=== PATIENT | female | born 1950 | race Caucasian/White ===

== ENCOUNTER 2016-10-07 08:36 | Inpatient (IN) | payer MEDICARE ==
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
[2016-10-07] MEDS ORDERED: GABAPENTIN 600 MG TABLET PO ONE (10:30)
[2016-10-07] MEDS ORDERED: FAMOTIDINE 20 MG TABLET PO ONE (10:30)
[2016-10-07] MEDS ORDERED: CLONIDINE HCL 0.1 MG/24 HR (7 DAY PATCH) TD SCH (10:30)
[2016-10-07] MEDS ORDERED: ONDANSETRON 4 MG/2ML 2 ML VIAL IV ONE (10:30)
[2016-10-07] MEDS ORDERED: OXYCODONE HCL 10 MG TAB.SR PO ONE ×2 (10:30→11:40)
[2016-10-07] MEDS ORDERED: CEFAZOLIN SODIUM 2 GRAM PREMIX 100 ML IV PRN (10:30)
[2016-10-07] MEDS ORDERED: BUPIVACAINE 0.25% (MDV) 20 ML in SODIUM CHLORIDE 0.9% FLUSH 20 ML IF PRN (10:30)
[2016-10-07] MEDS ORDERED: POLYMYXIN B SULFATE 500,000 UNITS, BACITRACIN 25,000 UNITS in SODIUM CHLORIDE 3 L IRRIG... IR PRN (10:30)
[2016-10-07] MEDS ORDERED: TRANEXAMIC ACID 1,000 MG in SODIUM CHLORIDE 0.9% 100 ML IV PRN (10:30)
[2016-10-07] MEDS ORDERED: CELECOXIB 200 MG CAPSULE PO ONE (10:30)
[2016-10-07] MEDS ORDERED: TRAMADOL HCL 50 MG TABLET PO ONE (10:30)
[2016-10-07] MEDS ORDERED: BUPIVACAINE 0.25% (MDV) 24 ML, MORPHINE SULFATE 8 MG, EPINEPHRINE 0.3 MG in SODIUM CHLO... IF PRN (10:30)
[2016-10-07] MEDS ORDERED: CEFAZOLIN SODIUM 2 GRAM PREMIX 100 ML IV ONE (10:47)
[2016-10-07] MEDS ORDERED: IV START KIT ONE (10:47)
[2016-10-07] MEDS ORDERED: LACTATED RINGERS 1,000 ML ONE (10:47)
[2016-10-07] MEDS ORDERED: PROPOFOL 20 ML IV ONE ×4 (11:19→15:11)
[2016-10-07] MEDS ORDERED: LIDOCAINE 2% (PRES FREE) 5 ML VIAL ONE (11:19)
[2016-10-07] MEDS ORDERED: FENTANYL 100 MCG/2 ML VIAL ONE (11:20)
[2016-10-07] MEDS ORDERED: MIDAZOLAM HCL 5 MG/5 ML VIAL ONE (11:20)
[2016-10-07] MEDS ORDERED: TRAMADOL HCL 50 MG TABLET ONE (11:40)
[2016-10-07] MEDS ORDERED: CELECOXIB 200 MG CAPSULE ONE (11:41)
[2016-10-07] MEDS ORDERED: CLONIDINE HCL 0.1 MG/24 HR (7 DAY PATCH) TD ONE (11:41)
[2016-10-07] MEDS ORDERED: FAMOTIDINE 20 MG TABLET ONE (11:41)
[2016-10-07] MEDS ORDERED: ONDANSETRON 4 MG/2ML 2 ML VIAL ONE (11:41)
[2016-10-07] MEDS ORDERED: GABAPENTIN 600 MG TABLET ONE (11:41)
[2016-10-07] MEDS ORDERED: ROPIVACAINE 0.2% 20 ML VIAL ONE (11:44)
[2016-10-07] MEDS ORDERED: SPINAL PROCEDURAL TRAY 1 EACH ONE (11:44)
[2016-10-07] MEDS ORDERED: NERVE BLOCK PROCEDURAL TRAY 1 EACH ONE (11:44)
[2016-10-07] MEDS ORDERED: METHYLENE BLUE 1% 1ML VIAL ONE (13:16)
[2016-10-07] MEDS ORDERED: DEXAMETHASONE SOD PHOS 4 MG/1 ML VIAL ONE (13:54)
[2016-10-07] MEDS ORDERED: ON-Q PUMP/ROPIVACAINE 0.2% 450 ML ONE (14:09)
[2016-10-07] MEDS ORDERED: EPHEDRINE SULFATE UD SYR 25 MG 25 MG/5 ML SYRINGE IV ONE (14:31)
[2016-10-07] MEDS ORDERED: HYDROMORPHONE HCL 1 MG/ML SYRINGE IV PRN ×2 (14:47→17:04)
[2016-10-07] MEDS ORDERED: ATROPINE SULFATE 0.4 MG/1 ML VIAL IV PRN (14:47)
[2016-10-07] MEDS ORDERED: FENTANYL 100 MCG/2 ML VIAL IV PRN (14:47)
[2016-10-07] MEDS ORDERED: NALOXONE HCL 0.4 MG/ML VIAL IV PRN (14:47)
[2016-10-07] MEDS ORDERED: ONDANSETRON 4 MG/2ML 2 ML VIAL IV PRN ×2 (14:47→16:40)
[2016-10-07] MEDS ORDERED: PROMETHAZINE HCL 25 MG/ML VIAL IM PRN (14:47)
[2016-10-07] MEDS ORDERED: LACTATED RINGERS 1,000 ML IV SCH (15:00)
--- NOTE | 2016-10-07 15:54 | PCMBPN ---
Brief Post Op Note: Date of Procedure: 10/07/16 Preoperative Diagnosis: left knee DJD Postoperative Diagnosis: 1. [Same] Procedure: left TKA Surgeon: Avel Marinelli MD Assist: Fany (NEENA) Anesthesia: spinal/add block (Elian) Condition: stable to PAR Complications: none IV Fluids: 2000 mLs of LR Urine Output: 500 mLs Estimated Blood Loss: 200 mLs Tourniquet Time: ~45 Specimens: [N/A] Implants: Legion Drains: none
[2016-10-07] MEDS: ON-Q PUMP/ROPIVACAINE 0.2% 450 ML in PREMIX BAG 1 EACH NB PRN (16:00)
--- NOTE | 2016-10-07 16:24 | RAD ---
LEFT KNEE 2 VIEWS HISTORY: Status post total knee arthroplasty. Frontal and lateral radiographs of the left knee. COMPARISON: None. FINDINGS: POSTPROCEDURAL CHANGE: Status post left total knee arthroplasty. ALIGNMENT: Grossly anatomic. FRACTURE: None identified. ADDITIONAL POSTPROCEDURAL FINDINGS: Soft tissue gas and overlying brace. IMPRESSION: Grossly unremarkable immediate post arthroplasty appearance of the left knee.
[2016-10-07 16:36] VITALS: BMI 26.8
[2016-10-07] MEDS ORDERED: HYDROMORPHONE HCL 0.5 MG/0.5 ML SYRINGE IV PRN (16:40)
[2016-10-07] MEDS ORDERED: CALCIUM CARBONATE 500 MG TAB.CHEW PO PRN (16:40)
[2016-10-07] MEDS ORDERED: HYDROMORPHONE HCL 2 MG/ML SYRINGE IV PRN (17:05)
[2016-10-07] MEDS ORDERED: PUMP TUBING ONE (17:18)
[2016-10-07] MEDS: KETOROLAC TROMETHAMINE 30 MG/ML 1 ML VIAL IV PRN (17:47)
[2016-10-07] MEDS: D5 1/2NS with 20 mEq KCL 1,000 ML IV SCH (17:47)
[2016-10-07] MEDS: HYDROMORPHONE HCL 2 MG TABLET PO PRN ×2 (18:08→22:03)
--- NOTE | 2016-10-07 19:05 | CONS ---
CHRISTIAN HARDING [id number] HOSPITALIST CONSULT DATE OF ADMISSION: October 07, 2016 DATE OF CONSULTATION: October 07, 2016 REQUESTING PHYSICIAN: Avel Marinelli M.D. CHIEF COMPLAINT: Left total knee arthroplasty. HISTORY OF PRESENT ILLNESS: The patient is a 66-year-old female postoperative day zero status post left total knee arthroplasty. Reports feeling some pain in the left knee but otherwise not having any symptoms currently. Not short of breath, no nausea, no other complaints. We have been requested to assist with medical management. PAST MEDICAL: 1. Hypothyroidism. 2. Depression. 3. Dyslipidemia on fenofibrate and Lipitor. 4. Restless leg syndrome. 5. Remote history of transverse myelitis in 2009 which is almost completely resolved. 6. History of metatarsal stress fracture. 7. Remote history of ulcers. 8. She has a previous history of hypertension, diabetes, and reflux but these have all vastly improved since having gastric bypass. PAST SURGICAL HISTORY: Remarkable for: 1. Gastric bypass. 2. Knee arthroscopy. 3. She has had previous bicep tears bilaterally but these were not repaired. 4. Previous laser lithotripsy. 5. Bilateral foot surgeries. 6. Bilateral bunionectomies. 7. Previous Lasik and cataract replacement. 8. Bilateral carpal tunnel surgery. 9. Bilateral thumb joint fusions. 10. Bilateral breast reduction. 11. Hysteroscopy. 12. Dilation and curettage. 13. Cone biopsy. 14. Appendectomy. 15. Ovarian tube cyst removal. 16. Lump removed from under the right arm. ALLERGIES: LISTED : 1. HYDROCODONE. 2. OXYCODONE. 3. DARVOCET. 4. SENSITIVE TO TAPE. HOME MEDICATIONS: 1. Tylenol #3. She takes two or three a day on a bad day. 2. She takes atorvastatin 10 mg daily. 3. Bupropion SR 150 mg orally twice daily. 4. Calcium citrate with D. 5. Celebrex 200 mg daily. 6. Fenofibrate 54 mg daily. 7. Levothyroxine 125 mcg daily. 8. Lexapro 20 mg daily. 9. Loratadine 10 mg daily. 10. Omeprazole 20 mg orally twice daily. 11. Ropinirole 0.5 mg daily. 12. Sudafed phenylephrine 10 mg as needed. 13. B12 1000 mg weekly. 14. Vitamin D 1000 orally twice daily. 15. Zinc 50 mg daily. 16. Ambien 5 mg at bedtime. 17. Multivitamin. SOCIAL HISTORY: No smoking. Wine perhaps two times a month. She is a retired teacher, . She lives in her home alone. She has two cats. No kids. [employer]. Hobbies include quilting, socializing and volunteering. She also enjoys traveling very much. FAMILY HISTORY: Father at age 90 with myasthenia gravis. Mom at 77 of heart disease. REVIEW OF SYSTEMS: Eyes, ears, nose and throat have been okay. Breathing has been okay. Heart has been okay. No breasts complaints. No skin complaints except for a basal cell that was recently removed. No stomach complaints, no nausea, no vomiting. Reflux has been much better. No urinary complaints. Remote history of kidney stones but currently stable. No constipation, no diarrhea. No leg complaints currently other than the soreness postoperatively. Arms have been okay. No history of stroke or nervous system problems. Mood has been doing well. PHYSICAL EXAM: GENERAL: A very pleasant female in no distress. VITAL SIGNS: Temperature 98.0, pulse is 80, blood pressure 130/78, respirations 20, 98% saturation on 2 liters. HEAD: Head is normocephalic and atraumatic. EYES: Are unremarkable. EARS: Are normal bilaterally. NOSE: Is unremarkable. MOUTH: Dentition is very good. NECK: Is supple without masses or adenopathy. LUNGS: Are clear to auscultation bilaterally. HEART: Somewhat distant but regular and unremarkable. ABDOMEN: Soft, nontender, nondistended. Bowel sounds are normal. BREAST: Exam is deferred. GENITOURINARY: Exam is deferred. Leon is draining yellow urine. EXTREMITIES: Thighs are unremarkable. Left knee is wrapped and cooling sleeve applied. Stockings present bilaterally. She is able to wiggle her toes on both sides. NEUROLOGICAL: She is alert and oriented and appropriate. Responds appropriately. LABORATORY: White count 5.5, hemoglobin 13.2, platelets 180. INR 0.96. Sodium 141, potassium 4.1, chloride 106, CO2 30, BUN 22, creatinine 09, glucose 127. Liver function tests are normal. Calcium 9.6. IMAGIN. Chest x-ray is normal. 2. Knee is normal postoperative appearance. ELECTROCARDIOGRAM: Preoperative electrocardiogram showed sinus rhythm, 67 beats per minute, MA 136, QRS 88, axis -1, QTc 416. ASSESSMENT AND PLAN: 1. Status post left total knee arthroplasty. Appreciate orthopedic, therapeutic and nursing care. 2. Hypothyroidism. We will continue on medications. 3. Dyslipidemia, anticipate holding medicines currently but resume at discharge. 4. History of depression. We will continue on Lexapro and bupropion. 5. History of restless legs. We will continue on current medications. 6. Status post gastric bypass. Patient is off hypertension and diabetes treatment, and states her last A1c was less than 5. We will monitor but anticipate she should do well. 7. Venous thrombosis prophylaxis. Anticipate aspirin use per orthopedics. Thank you for this consultation. We will follow with you.
[2016-10-07] MEDS: ACETAMINOPHEN 500 MG TABLET PO SCH (22:01)
[2016-10-07] MEDS: ASCORBIC ACID 500 MG TABLET PO SCH (22:01)
[2016-10-07] MEDS: CEFAZOLIN SODIUM 1 GRAM PREMIX 1 G in Premix (D5W) 50 ml 1 EACH IV SCH (22:01)
[2016-10-07] MEDS: DOCUSATE SODIUM 100 MG CAPSULE PO SCH (22:01)
[2016-10-07] MEDS: HYDROXYZINE PAMOATE 25 MG CAPSULE PO PRN (22:03)
[2016-10-08] MEDS: D5 1/2NS with 20 mEq KCL 1,000 ML IV SCH ×2 (00:39→08:49)
[2016-10-08] MEDS: ACETAMINOPHEN 500 MG TABLET PO SCH ×4 (05:12→22:36)
[2016-10-08] MEDS: CEFAZOLIN SODIUM 1 GRAM PREMIX 1 G in Premix (D5W) 50 ml 1 EACH IV SCH (05:13)
[2016-10-08 05:55] LABS: HEMATOCRIT 31.9 % (37.0-47.0); HEMOGLOBIN 10.7 gm/l (12.0-16.0); MEAN CELL VOLUME 93.8 fl (81.0-99.0); MEAN CORPUSCULAR HEMOGLOBIN 31.5 pg (27.0-31.0); MEAN CORPUSCULAR HGB CONC 33.5 g/dl (33.0-37.0); RED CELL DISTRIBUTION WIDTH 12.9 % (11.5-14.5)
[2016-10-08 06:23] LABS: CALCIUM 8.2 mg/dL (8.6-10.3)
[2016-10-08] MEDS: LEVOTHYROXINE SODIUM 125 MCG TABLET PO SCH (07:29)
[2016-10-08] MEDS: ON-Q PUMP/ROPIVACAINE 0.2% 450 ML in PREMIX BAG 1 EACH NB PRN (07:33)
--- NOTE | 2016-10-08 08:37 | PDOC43 ---
- Subjective Findings: Doing well- pain control excellent overnight Subjective: Denies Nausea, Denies Vomiting, Denies Fever - Objective Vital Signs Temperature 98.4 F 10/08/16 07:59 Pulse Rate 65 10/08/16 07:59 Respiratory Rate 17 10/08/16 07:59 Blood Pressure 108/56 10/08/16 07:59 O2 Saturation by Pulse Oximetry 98 10/08/16 07:59 Oxygen Delivery Method Room Air Oxygen Flow Rate 0 Laboratory 10/08/16 05:30 10/08/16 05:30 10/08/16 10/08/16 10/07/16 07:32 05:30 22:13 RBC 3.40 L MCH 31.5 H Estimated GFR 100 H POC Capillary Glucose 127 H 214 H Calcium 8.2 L Active Medication Orders Category Date Time Status Acetaminophen [Tylenol] Med 10/07/16 22:30 Active 1,000 mg PO Q6H Ascorbic Acid [Vitamin C] Med 10/07/16 21:00 Active 500 mg PO BID Aspirin (Enteric Coated) [Ecotrin] Med 10/08/16 09:00 Active 325 mg PO DAILY Bisacodyl [Dulcolax] Med 10/10/16 15:58 Active 10 mg [place] DAILY PRN Bupropion HCl [Wellbutrin Xl] Med 10/08/16 09:00 Active 150 mg PO DAILY Calcium Carbonate [Tums] Med 10/07/16 16:40 Active 1,000 - 2,000 mg PO Q2H PRN Celecoxib [Celebrex] Med 10/08/16 09:00 Active 200 mg PO DAILY D5 1/2NS with 20 mEq KCL [D51/2NS with 20 mEq KCL] 1, Med 10/07/16 16:40 Active 000 ml IV 125 mls/hr Docusate Sodium [Colace] Med 10/07/16 21:00 Active 100 mg PO BID Escitalopram Oxalate [Lexapro] Med 10/08/16 09:00 Active 20 mg PO DAILY Hydromorphone HCl [Dilaudid] Med 10/07/16 16:40 Active 0.5 - 1.5 mg IV Q1H PRN Hydromorphone HCl [Dilaudid] Med 10/07/16 17:04 Active 0.5 - 1.5 mg IV Q1H PRN Hydromorphone HCl [Dilaudid] Med 10/07/16 17:05 Active 0.5 - 1.5 mg IV Q1H PRN Hydromorphone [Dilaudid] Med 10/07/16 16:40 Active 2 mg PO Q2H PRN Hydroxyzine Pamoate [Vistaril] Med 10/07/16 18:59 Active 25 - 50 mg PO Q4H PRN Ketorolac Tromethamine [Toradol] Med 10/07/16 16:40 Active 30 mg IV Q6H PRN Levothyroxine Sodium [Levothroid] Med 10/08/16 07:30 Active 125 mcg PO QAMAC Loratadine [Claritin] Med 10/08/16 09:00 Active 10 mg PO DAILY Magnesium Hydroxide [Milk of Magnesia] Med 10/08/16 15:58 Active 30 ml PO DAILY PRN Multivitamins [One-A-Day] Med 10/08/16 09:00 Active 1 tab PO DAILY On-Q Pump/Ropivacaine 0.2% 450 ml Med 10/07/16 14:47 Active Premix Bag [Premix Fluid] 1 each NB Q50H Ondansetron 4 mg/2ml Vial [Zofran] Med 10/07/16 16:40 Active 4 - 6 mg IV Q6H PRN Pantoprazole Sodium [Protonix] Med 10/08/16 09:00 Active 40 mg PO DAILY Remove Patch Med 10/08/16 15:58 Once 1 each TD X1 ONE Ropinirole [Requip] Med 10/08/16 09:00 Active 0.5 mg PO DAILY Sodium Chloride 0.9% Flush [Normal Saline 10ml Flush] Med 10/07/16 16:40 Active 10 - 50 ml IV PRN PRN Sodium Chloride 0.9% Flush [Normal Saline 10ml Flush] Med 10/08/16 01:00 Active 10 ml IV Q8HR Intake and Output 10/06/16 10/07/16 10/08/16 23:59 23:59 23:59 Intake Total 600 2268 Output Total 700 1650 Balance -100 618 General: Afebrile HEENT: Atraumatic Lungs: Normal Air Movement Cardiovascular: Regular Rate and Rhythm Skin: Normal Color, Warm, Dry, Intact Neurological: Grossly Intact, Alert, Oriented x 4 Psych/Mental Status: Normal Affect, Normal Mood - Left Lower Extremity Incision: Dressing Clean/Dry/Intact, No Drainage Motor: Extensor Hallucis Longus: 5/5, Tibialis Anterior: 5/5, Gastrocnemius: 5/5 , Peroneals: 5/5 Gross Sensation to Light Touch: Present: Deep Peroneal Nerve, Superficial Peroneal Nerve, Medial Plantar Nerve, Lateral Plantar Nerve Capillary Refill: < 3 Seconds Motion: I SLR, HS 0-50 - Problems (1) Status post total left knee replacement Status: AcuteAssessment/Plan: POD#1- doing well 1. Physical Therapy: per protocol 2. Pain Control: excellent per protocol at this point. Only tolerant of Dilaudid from the standpoint of narcotics which she is hoping to minimize. Instructed on Nerve catheter (decreased to 6/hr), and will use celebrex scheduled and PRN tramadol 3. DVT Prophylaxis: ECASA/mechanicals/mobilization per risk stratification protocol 4. Disposition: will follow. Expect probable home tomorrow if continues to progress 5. Medical Issues: stable- appreciate input from Hospitalist service
[2016-10-08] MEDS: HYDROMORPHONE HCL 2 MG TABLET PO PRN ×4 (08:57→19:48)
[2016-10-08] MEDS: HYDROXYZINE PAMOATE 25 MG CAPSULE PO PRN ×3 (08:57→19:48)
[2016-10-08] MEDS ORDERED: ROPINIROLE 0.5 MG TABLET PO SCH ×2 (09:00→20:00)
[2016-10-08] MEDS: PANTOPRAZOLE 40 MG TABLET DR PO SCH (09:16)
[2016-10-08] MEDS: BUPROPION HCL 150 MG XL TAB.ER.24H PO SCH (09:16)
[2016-10-08] MEDS: DOCUSATE SODIUM 100 MG CAPSULE PO SCH ×2 (09:16→20:56)
[2016-10-08] MEDS: MULTIVITAMINS 1 TAB TABLET PO SCH (09:16)
[2016-10-08] MEDS: LORATADINE 10 MG TABLET PO SCH (09:16)
[2016-10-08] MEDS: ASCORBIC ACID 500 MG TABLET PO SCH ×2 (09:16→20:56)
[2016-10-08] MEDS: ASPIRIN (ENTERIC COATED) 325 MG TABLET.EC PO SCH (09:16)
[2016-10-08] MEDS: ESCITALOPRAM 20 MG TABLET PO SCH (09:16)
[2016-10-08] MEDS: CELECOXIB 200 MG CAPSULE PO SCH (09:16)
[2016-10-08] MEDS ORDERED: BLISTEX LIPSTICK 1 EACH TP PRN (09:39)
[2016-10-08] MEDS ORDERED: REMOVE PATCH 1 EACH UNIT TD SCH (10:30)
--- NOTE | 2016-10-08 11:08 | PDOC43 ---
- Subjective Chief Complaint: Left knee arthroplasty Subjective: Reports Pain Tolerable, Reports Tolerating Diet Well, Denies Vomiting, Denies Fever - Objective Vital Signs Temperature 98.4 F 10/08/16 07:59 Pulse Rate 65 10/08/16 07:59 Respiratory Rate 17 10/08/16 07:59 Blood Pressure 108/56 10/08/16 07:59 O2 Saturation by Pulse Oximetry 98 10/08/16 07:59 Oxygen Delivery Method Room Air Oxygen Flow Rate 0 Intake and Output 10/07/16 10/08/16 10/09/16 06:59 06:59 06:59 Intake Total 2868 432 Output Total 2350 Balance 518 432 General: Alert, Oriented x3, Cooperative, No Acute Distress HEENT: Mucous membr. moist/pink Lungs: Clear to Auscultation Bilaterally Cardiovascular: Regular Rate and Rhythm Abdomen: Soft, Normal Bowel Sounds, Non-Distended, No Tenderness Extremities: No Edema Skin: Warm, Dry Wound: Dressing Clean/Dry/Intact Laboratory 10/08/16 05:30 10/08/16 05:30 10/08/16 10/08/16 10/07/16 07:32 05:30 22:13 RBC 3.40 L MCH 31.5 H Estimated GFR 100 H POC Capillary Glucose 127 H 214 H Calcium 8.2 L Current Medications: Current meds reviewed in EMR. - Problems: Assessment/Plan (1) Status post total left knee replacement Status: AcuteAssessment/Plan: will defer to ortho service (2) Hypothyroidism Qualifiers: Hypothyroidism type: acquired Qualifier Code: (E03.9) Hypothyroidism, unspecified Status: ChronicAssessment/Plan: cont. usual replacement dose without change (3) Dyslipidemia Status: AcuteAssessment/Plan: Cont. Fenofibrate without changes (4) Depression Qualifiers: Depression Type: major depressive disorder Active/Remission status: in full remission Status: ChronicAssessment/Plan: cont. Wellbutrin and Lexapro (5) Restless legs syndrome Status: AcuteAssessment/Plan: cont Ropinirole (6) H/O gastric bypass Status: AcuteAssessment/Plan: Cont vitamin supplements (7) Acute blood loss anemia Status: AcuteAssessment/Plan: mild, HGB is 10.7 (8) Hyperglycemia Status: AcuteAssessment/Plan: diabetes has likely resolved with weight loss, current mild hyperglycemia likely due to stress of surgery, no further treatment or follow up needed VTE Prophylaxis: mech measures and daily aspirin Disposition: likely home in 1-2 days Additional Comments: The hospitalist service will sign off, but be available for any medical issues that develop during patient's hospitalization.
[2016-10-08] MEDS: REMOVE PATCH 1 EACH UNIT TD ONE ×2 (12:03→15:58)
[2016-10-08] MEDS: KETOROLAC TROMETHAMINE 30 MG/ML 1 ML VIAL IV PRN (14:40)
[2016-10-08] MEDS ORDERED: MAGNESIUM HYDROXIDE 30 ML UDCUP PO PRN (15:58)
[2016-10-09 06:19] LABS: HEMATOCRIT 29.8 % (37.0-47.0); HEMOGLOBIN 9.8 gm/l (12.0-16.0)
[2016-10-09] MEDS: ACETAMINOPHEN 500 MG TABLET PO SCH ×3 (07:12→16:23)
[2016-10-09] MEDS: LEVOTHYROXINE SODIUM 125 MCG TABLET PO SCH (07:29)
[2016-10-09] MEDS: HYDROMORPHONE HCL 2 MG TABLET PO PRN ×5 (08:35→16:23)
[2016-10-09] MEDS: ESCITALOPRAM 20 MG TABLET PO SCH (08:35)
[2016-10-09] MEDS: CELECOXIB 200 MG CAPSULE PO SCH (08:35)
[2016-10-09] MEDS: BUPROPION HCL 150 MG XL TAB.ER.24H PO SCH (08:35)
[2016-10-09] MEDS: PANTOPRAZOLE 40 MG TABLET DR PO SCH (08:35)
[2016-10-09] MEDS: ASCORBIC ACID 500 MG TABLET PO SCH (08:35)
[2016-10-09] MEDS: DOCUSATE SODIUM 100 MG CAPSULE PO SCH (08:35)
[2016-10-09] MEDS: MULTIVITAMINS 1 TAB TABLET PO SCH (08:35)
[2016-10-09] MEDS: LORATADINE 10 MG TABLET PO SCH (08:35)
[2016-10-09] MEDS: ASPIRIN (ENTERIC COATED) 325 MG TABLET.EC PO SCH (08:35)
--- NOTE | 2016-10-09 08:59 | PDOC43 ---
- Subjective Findings: Ortho POD 2 L TKA Patient awake, a and o times 4 this am. Presently ambulating with PT. More painful this am than yesterday, currently a bit better with ambulation but still reports 02/17. No other c/o. Denies CP/SOB/NV. Taking a regular diet and positive flatus. Good progress with PT. Subjective: Denies Chest Pain, Denies Shortness of Breath, Denies Nausea, Denies Vomiting, Denies Fever - Objective Vital Signs Temperature 97.9 F 10/09/16 07:38 Pulse Rate 65 10/09/16 07:38 Respiratory Rate 16 10/09/16 07:38 Blood Pressure 108/61 10/09/16 07:38 O2 Saturation by Pulse Oximetry 98 10/09/16 07:38 Oxygen Delivery Method Room Air Oxygen Flow Rate 0 Laboratory 10/09/16 05:30 10/08/16 05:30 Active Medication Orders Category Date Time Status Acetaminophen [Tylenol] Med 10/07/16 22:30 Active 1,000 mg PO Q6H Ascorbic Acid [Vitamin C] Med 10/07/16 21:00 Active 500 mg PO BID Aspirin (Enteric Coated) [Ecotrin] Med 10/08/16 09:00 Active 325 mg PO DAILY Bisacodyl [Dulcolax] Med 10/10/16 15:58 Active 10 mg [place] DAILY PRN Bupropion HCl [Wellbutrin Xl] Med 10/08/16 09:00 Active 150 mg PO DAILY Calcium Carbonate [Tums] Med 10/07/16 16:40 Active 1,000 - 2,000 mg PO Q2H PRN Celecoxib [Celebrex] Med 10/08/16 09:00 Active 200 mg PO DAILY Docusate Sodium [Colace] Med 10/07/16 21:00 Active 100 mg PO BID Escitalopram Oxalate [Lexapro] Med 10/08/16 09:00 Active 20 mg PO DAILY Hydromorphone HCl [Dilaudid] Med 10/07/16 16:40 Active 0.5 - 1.5 mg IV Q1H PRN Hydromorphone HCl [Dilaudid] Med 10/07/16 17:04 Active 0.5 - 1.5 mg IV Q1H PRN Hydromorphone HCl [Dilaudid] Med 10/07/16 17:05 Active 0.5 - 1.5 mg IV Q1H PRN Hydromorphone [Dilaudid] Med 10/07/16 16:40 Active 2 mg PO Q2H PRN Hydroxyzine Pamoate [Vistaril] Med 10/07/16 18:59 Active 25 - 50 mg PO Q4H PRN Levothyroxine Sodium [Levothroid] Med 10/08/16 07:30 Active 125 mcg PO QAMAC Lip Good[place] Bar [Blistex] Med 10/08/16 09:39 Active 1 each TP PRN PRN Loratadine [Claritin] Med 10/08/16 09:00 Active 10 mg PO DAILY Magnesium Hydroxide [Milk of Magnesia] Med 10/08/16 15:58 Active 30 ml PO DAILY PRN Multivitamins [One-A-Day] Med 10/08/16 09:00 Active 1 tab PO DAILY On-Q Pump/Ropivacaine 0.2% 450 ml Med 10/07/16 14:47 Active Premix Bag [Premix Fluid] 1 each NB Q50H Ondansetron 4 mg/2ml Vial [Zofran] Med 10/07/16 16:40 Active 4 - 6 mg IV Q6H PRN Pantoprazole Sodium [Protonix] Med 10/08/16 09:00 Active 40 mg PO DAILY Ropinirole [Requip] Med 10/08/16 20:00 Active 0.5 mg PO DAILY@2000 Sodium Chloride 0.9% Flush [Normal Saline 10ml Flush] Med 10/07/16 16:40 Active 10 - 50 ml IV PRN PRN Sodium Chloride 0.9% Flush [Normal Saline 10ml Flush] Med 10/08/16 01:00 Active 10 ml IV Q8HR Intake and Output 10/07/16 10/08/16 10/09/16 23:59 23:59 23:59 Intake Total 600 3450 Output Total 700 2925 400 Balance -100 525 -400 Neurological: No Normal Gait (ambulating with a walker post L TKA) Peripheral Pulses: Left Posterior Tibialis: 1+, Left Dorsalis Pedis: 1+ - Left Lower Extremity Incision: Well Approximated (with a sub q closure skin glue and mesh, moderate edema, thigh and calf SNT.), No Drainage, No Erythema, No Rash Motor: Extensor Hallucis Longus: 5/5, Tibialis Anterior: 5/5, Gastrocnemius: 4/5 , Peroneals: 5/5, Quadriceps: 4/5 Gross Sensation to Light Touch: Present: Deep Peroneal Nerve, Superficial Peroneal Nerve, Medial Plantar Nerve, Lateral Plantar Nerve, Sural Nerve, Saphenous Nerve Motion: AROM L knee 5-45 with passive improvement. SLR with assist. Ankle full AROM. - Problems (1) Status post total left knee replacement Status: AcuteAssessment/Plan: Ortho POD 2 L TKA- doing reasonably well 1. Continue Physical Therapy: per protocol 2. Pain Control: Fair today. Consider Toradol 30mg now and repeat q 6 hours times 2 prn. Only tolerant of Dilaudid from the standpoint of narcotics which she is hoping to minimize. Instructed on Nerve catheter (decreased to 6/hr). 3. BMP in am 3/2 prn. 4. DVT Prophylaxis: ECASA/mechanicals/mobilization per risk stratification protocol 5. Disposition: will follow. Expect probable home tomorrow if continues to progress
[2016-10-09] MEDS: KETOROLAC TROMETHAMINE 30 MG/ML 1 ML VIAL IV SCH ×2 (09:21→16:23)
--- NOTE | 2016-10-09 09:57 | OP ---
CHRISTIAN HARDING [id number] : 1950 DATE OF SURGERY: October 07, 2016 PREOPERATIVE DIAGNOSIS: Degenerative joint disease left knee POSTOPERATIVE DIAGNOSIS: Same PROCEDURE: Left Total Knee Arthroplasty COMPONENTS: Legion size 4 posterior stabilized Oxinium cemented femoral component, size 3 cemented tibial base plate, 9mm high flexion cross-linked polyethylene articular insert, 32mm resurfacing patella. SURGEON: Avel Marinelli M.D. REAL [employer]STATE OPERATIONS MANAGER: Fany ENGLISH) ANESTHESIA: Spinal plus adductor nerve block per Elian ESTIMATED BLOOD LOSS: 200 cc IV FLUID REPLACEMENT: per anesthesia, 2 liters crystalloid. URINE OUTPUT: 500 cc DRAINS: None TOURNIQUET TIME: Approximately 45 minutes COMPLICATIONS: None HISTORY: Briefly, patient is a 66-year-old female with clinical and radiographic evidence of advanced degenerative disease of their left knee. They have failed traditional non-operative management and desire elective total knee arthroplasty. For additional details, please refer to the previously dictated Preoperative History and Physical Examination. A PAR conference was held, questions and concerns were addressed, and informed consent was obtained. FINDINGS: Tricompartmental changes more notably in the lateral compartment with eburnated bone posterolateral femoral condyle. There was similar less significant changes posterior tibial plateau with full thickness loss mid-lateral tibial plateau. There were posterior femoral osteophytes both medially and laterally and significant hypertrophic changes about the patella with full thickness loss of the median ridge, less significant changes on the trochlea. Medial compartment was reasonably preserved. PROCEDURE: The patient was taken to the operating room after the placement of a spinal anesthetic and regional nerve block. They were placed supine on the operating room table, a tourniquet was applied to the proximal thigh and the left lower extremity was prepped and draped out in the usual sterile fashion. Preoperative IV antibiotics were given empirically. Intraoperative DVT prophylaxis consisted of contralateral foot pumps. Personal filtration suits were used as was a closed room environment. A WHO timeout was taken. Surgical site was identified and confirmed. The leg was then elevated and the tourniquet inflated after gravity exsanguination. This was released after initial exposure and not utilized again until cementation. Tranexamic acid was infiltrated over 10 minutes prior to incision, 1 gram dose per protocol. A similar 2nd dose was given at initiation of closure. With the knee flexed, an anteromedial incision was made from the level of the tibial tubercle to two centimeters proximal to the superior pole of the patella. A medial arthrotomy was performed with a mini-mid vastus approach. A medial subperiosteal proximal tibial release was performed and a portion of the anterior fat pad was excised to improve visualization. The supra-patellar pouch was raised subperiosteally. The anterior and posterior cruciate ligaments were excised as were the remaining portions of the anterior horns of the medial and lateral menisci. Minimally invasive instrumentation and philosophy were used throughout the procedure in an attempt to decrease the extent of soft tissue disruption/damage. Patient matched cutting blocks were also used as per our preoperative plan. The [employer] patient matched distal femoral cutting block was applied and secured to the bone. We confirmed that the alignment matched our preoperative plan and made the distal femoral cut. We confirmed the size of the femur and placed the appropriate 4-in-1 cutting block making our anterior and posterior condylar cuts followed by the chamfer cuts. Residual marginal osteophytes were removed. Attention was then directed to the tibia which was retracted anteriorly. Remaining meniscal tissue was excised. The Visionaire patient matched tibial block was then positioned and secured to bone. Alignment was confirmed as per our preoperative plan and the proximal tibial cut made. The tibia was sized and we passed the 11 mm. punch. We then balanced the flexion and extension gaps by removal of residual posterior, medial and lateral femoral osteophytes. Also, a limited posterior capsular release was performed. We confirmed hemostasis. We then completed the femoral preparation by reaming and chiseling the notch. Femoral and tibial trial components were placed. We were able to obtain full extension with nice roll back and good coronal plane alignment and stability. The patella tracked well and was prepared using the Radames patellar reaming system removing 9 mm. of bone. Osteophytes were removed prior to this with a rongeur and we performed a circumferential limited denervation using cautery. This was sized accordingly and punch holes were drilled. We marked our tibial rotation and removed the trial components after passing the cruciform tibial punch. The knee was then re-exsanguinated and the tourniquet inflated. Double antibiotic pulsatile lavage was used to irrigate the knee and clean the cancellous mary interstices which were then carefully dried. Periarticular injection was done at this point per protocol of the posterior capsule, posteromedial knee and synovium. Two doses of high viscosity, methylene blue-stained, antibiotic impregnated polymethylmethacrylate were used to cement the tibial, femoral, and then patellar components. The knee was held in extension while the cement cured. All residual methacrylate was meticulously removed. Attention was then directed towards closure. We irrigated and the retinaculum was closed with a running #2 absorbable Strato-Fix suture. A second periarticular injection was done at this point per protocol. The repair was checked in maximum flexion. We then lightly irrigated the subcutaneous tissue and closed with interrupted 2-0 and 3-0 Vicryl Plus. The skin was then reapproximated with a subcuticular 4-0 Monocryl followed by Dermabond Prineo. A sterile compression dressing was applied. The patient was then transferred to their hospital bed and sent to the post anesthesia recovery room in stable condition. They tolerated the procedure well. Sponge, instrument, and needle count were correct. CC: Obi CALLEJAS
[2016-10-09 11:56] VITALS: BP 129/72
--- NOTE | 2016-10-10 13:34 | DS ---
Taylor HARDING [id number] : 1950 DATE OF ADMISSION: October 07, 2016 DATE OF DISCHARGE: October 09, 2016 DISCHARGE DIAGNOSES: Left knee degenerative joint disease. HOSPITAL PROCEDURES: Left total knee arthroplasty. SURGEON: Avel Marinelli M.D. BRIEF HISTORY: Patient is a 66-year-old female with both clinical and radiographic evidence of advanced DJD of their left knee. For the full history please see the chart note. BRIEF HOSPITAL COURSE: Patient was admitted on October 07, 2016. Dr. Avel Marinelli performed a left total knee arthroplasty. They were moved to the recovery room in stable condition. They were given 4 doses of antibiotic for empiric coverage. DVT prophylaxis consisted of aspirin 325 mg daily, pneumatic compression devices, CHASE hose and mobility. PT was instituted postop day 1 with left total knee arthroplasty protocol, weightbearing as tolerated. Their incision site remained benign, their vital signs remained stable and they remained neurally and vascularly intact through the duration of the stay. They were discharged home on postop day 2 to continue their outpatient PT at [facility] with left total knee arthroplasty protocol, weightbearing as tolerated. Zhang Velez M.D. was consulted to manage perioperative medical comorbidities for his consultation, the chart note. DISCHARGE INSTRUCTIONS: 1. Keep the wound site clean. May shower with Aquacel dressing intact. Call office with any questions or concerns and f/u for your dressing change as scheduled 1 week postop. 2. Continue the use of CHASE hose bilaterally. 3. Cooling unit 3-4 times daily for 30 minutes duration. 4. Outpatient PT at [facility] with left total knee arthroplasty protocol, weightbearing as tolerated. MEDICATIONS: 1. Patient is to resume normal preop medications. 2. Anti-coagulation will be with aspirin 325 mg daily for six weeks. 3. Pain management will be with Dilaudid 2 mg one to two every three to six hours as needed for pain. She also received Vistaril 25 mg one to two every four to six hours as well as Celebrex 200 mg twice daily. 4. Patient was also advised on utilization of a multi-vitamin with mineral daily as well as Vitamin C, 500mg daily for 1 month. 5. Patient encouraged to take an iron supplement in the form of ferrous sulfate, 325mg daily for 4 weeks. 6. Colace, 100mg, b.i.d. until regular bowel movement. FOLLOW-UP: Please return to the clinic as scheduled for your first scheduled postop check. Prior to that point in time please call with any questions or concerns. Job [id number] CC: [place] Jose Carlos Benitez D.O. [facility]
[2016-10-10] MEDS ORDERED: BISACODYL 10 MG SUP PR PRN (15:58)
== END 2016-10-09 16:35 | disposition home or self-care (01) | DRG 470 ==
LOC: OR 10:33 → MS 16:29
PROVIDERS: ADMIT Orthopaedic Surgery; ATTEND Orthopaedic Surgery
PROC: 0SRD0J9 Replacement of Left Knee Joint with Synthetic Substitute, Cemented, Open Approach (ICD-10-PCS; principal; 2016-10-07)
DX: M17.12 Unilateral primary osteoarthritis, left knee (principal); D62 Acute posthemorrhagic anemia; M21.062 Valgus deformity, not elsewhere classified, left knee; E03.9 Hypothyroidism, unspecified; E78.5 Hyperlipidemia, unspecified; G25.81 Restless legs syndrome; F32.89 Other specified depressive episodes; Z98.84 Bariatric surgery status; R73.9 Hyperglycemia, unspecified; Z88.5 Allergy status to narcotic agent